=== PATIENT | male | born 1950 | race Caucasian/White ===

== ENCOUNTER 2016-09-21 14:16 | Outpatient (CLI) | payer MEDICAID ==
[2016-09-21 18:56] LABS: HEMOGLOBIN A1C 0.55 g/dL
[2016-09-21 19:03] LABS: CHOL/HDL RATIO 3.2 (<5.0); CHOLESTEROL 211 mg/dL; HDL CHOLESTEROL 66 mg/dL; LDL/HDL RATIO 1.8 (<3.6); TRIGLYCERIDES 137 mg/dL; VLDL CHOLESTEROL 27 mg/dL
== END 2016-09-21 14:17 | disposition home or self-care (01) ==
LOC: LAB.F 14:16
PROVIDERS: ATTEND Internal Medicine
DX: E78.00 Pure hypercholesterolemia, unspecified (principal); R73.9 Hyperglycemia, unspecified
CPT/HCPCS: 36415; 80061; 83036

== ENCOUNTER 2018-05-20 08:55 | Outpatient (CLI) | payer MEDICARE ==
[2018-05-20 18:08] LABS: BASOPHILS % (AUTO) 0.6 %; EOSINOPHILS # (AUTO) 0.2 10^3/uL (0.0-0.7); EOSINOPHILS % (AUTO) 3.1 %; HGB - HEMOGLOBIN 15.5 g/dL (14.0-18.0); LYMPHOCYTES # (AUTO) 1.2 10^3/uL (1.5-3.5); MEAN CORPUSCULAR HEMOGLOBIN 33.7 pg (27.0-31.0); MEAN CORPUSCULAR HGB CONC 34.1 g/dL (32.0-36.0); MEAN CORPUSCULAR VOLUME 98.8 fL (80.0-94.0); MEAN PLATELET VOLUME 9.8 fL (7.4-11.4); MONOCYTES # (AUTO) 0.5 10^3/uL (0.0-1.0); MONOCYTES % (AUTO) 9.5 %; NEUTROPHILS # (AUTO) 3.3 10^3/uL (1.5-6.6); NEUTROPHILS % (AUTO) 63.8 %; PLT - PLATELET COUNT 174 10^3/uL (130-450); RED CELL DISTRIBUTION WIDTH 12.8 % (12.0-15.0); WHITE BLOOD COUNT 5.2 x10^3/uL (4.8-10.8)
[2018-05-20 18:21] LABS: ALBUMIN 4.4 g/dL (3.2-5.5); ALBUMIN/GLOBULIN RATIO 1.7 (1.0-2.2); ALKALINE PHOSPHATASE 61 IU/L (42-121); ALT ALANINE AMINOTRANSFERASE 25 IU/L (10-60); AST ASPARTATE AMINOTRANSFERASE 28 IU/L (10-42); BILIRUBIN,TOTAL 0.9 mg/dL (0.2-1.0); BUN - BLOOD UREA NITROGEN 18 mg/dL (6-20); CALCIUM 8.9 mg/dL (8.5-10.3); CARBON DIOXIDE - CO2 26 mmol/L (21-32); CHLORIDE 102 mmol/L (101-111); CHOL/HDL RATIO 3.3 (<5.0); CHOLESTEROL 191 mg/dL; CREATININE 0.8 mg/dL (0.6-1.2); GFR - MDRD 97 (>89); GLUCOSE 103 mg/dL (70-100); HDL CHOLESTEROL 58 mg/dL; LDL CHOLESTEROL,CALCULATED 119 mg/dL; LDL/HDL RATIO 2.1 (<3.6); SODIUM 136 mmol/L (135-145); VLDL CHOLESTEROL 14 mg/dL
[2018-05-20 18:55] LABS: HB2 TOTAL 16.7 g/dL; HEMOGLOBIN A1C 0.57 g/dL; HEMOGLOBIN A1C % 5.3 % (4.6-6.2)
[2018-05-21 13:47] LABS: HEPATITIS C ANTIBODY NON-REACTIVE (NON-REACTIVE)
== END 2018-05-20 08:56 | disposition home or self-care (01) ==
LOC: LAB.F 08:55
PROVIDERS: ATTEND Registered Nurse
DX: Z00.00 Encounter for general adult medical examination without abnormal findings (principal)
CPT/HCPCS: 36415; 80061; 83036; 86803; G0103; 80053; 83721; 84153; 84443; 85025

== ENCOUNTER 2020-08-06 09:54 | Day surgery (SDC) | payer MEDICARE ==
[2020-08-06] MEDS ORDERED: LACTATED RINGERS 1,000 ML IV ONE ×2 (10:08→11:46)
[2020-08-06] MEDS ORDERED: MIDAZOLAM 2 MG/2 ML VIAL ONE (10:44)
[2020-08-06] MEDS ORDERED: fentaNYL 250 MCG/5 ML VIAL ONE (10:44)
[2020-08-06 12:01] VITALS: BP 114/80
== END 2020-08-06 09:55 | disposition home or self-care (01) ==
LOC: SDS 09:54
PROVIDERS: ATTEND Surgery
PROC: 0DBP8ZX Excision of Rectum, Via Natural or Artificial Opening Endoscopic, Diagnostic (ICD-10-PCS; 2020-08-06)
PROC: 0DBK8ZX Excision of Ascending Colon, Via Natural or Artificial Opening Endoscopic, Diagnostic (ICD-10-PCS; principal; 2020-08-06 11:00)
DX: Z12.11 Encounter for screening for malignant neoplasm of colon (principal); K62.1 Rectal polyp; D12.2 Benign neoplasm of ascending colon; K57.30 Diverticulosis of large intestine without perforation or abscess without bleeding
CPT/HCPCS: 45380; J3010; J7120

== ENCOUNTER 2021-02-23 08:00 | Outpatient (CLI) | payer MEDICARE ==
--- NOTE | 2021-02-23 13:41 | XRAY Report ---
PROCEDURE: Lumbar Spine 2 View INDICATIONS: LUMBAR RADICULOPATHY TECHNIQUE: 3 views of the lumbar spine were acquired. COMPARISON: None. FINDINGS: L-SPINE: No acute displaced fracture. Minimal grade 1 anterolisthesis at L4-5. Endplate osteophytosis . 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 The vertebral body heights are maintained. The disc spac e heights are preserved. The sacroiliac joints appear patent. SOFT TISSUES: No focal abnormality. IMPRESSION: 1.No acute osseous abnormality of the lumbar spine. Reviewed by: Harsh Belrtan MD on 02/23/2021 1:40 PM [facility] Approved by: Harsh Beltran MD on 02/23/2021 1:40 PM [facility] Station ID: [id number]
== END 2021-02-23 23:59 | disposition home or self-care (01) ==
LOC: DI.S 08:00
PROVIDERS: ATTEND Physician Assistant
DX: M54.16 Radiculopathy, lumbar region (principal)

== ENCOUNTER 2021-03-28 09:57 | Outpatient (CLI) | payer MEDICARE ==
[2021-03-28 14:30] LABS: BASOPHILS # (AUTO) 0.1 10^3/uL (0.0-0.1); EOSINOPHILS # (AUTO) 0.2 10^3/uL (0.0-0.7); EOSINOPHILS % (AUTO) 3.6 %; HCT - HEMATOCRIT 45.5 % (42.0-52.0); HGB - HEMOGLOBIN 15.7 g/dL (14.0-18.0); LYMPHOCYTES # (AUTO) 1.5 10^3/uL (1.5-3.5); MEAN CORPUSCULAR HEMOGLOBIN 34.7 pg (27.0-31.0); MEAN CORPUSCULAR HGB CONC 34.5 g/dL (32.0-36.0); MEAN CORPUSCULAR VOLUME 100.4 fL (80.0-94.0); MEAN PLATELET VOLUME 10.8 fL (7.4-11.4); MONOCYTES # (AUTO) 0.6 10^3/uL (0.0-1.0); MONOCYTES % (AUTO) 10.4 %; NEUTROPHILS # (AUTO) 3.7 10^3/uL (1.5-6.6); NEUTROPHILS % (AUTO) 60.7 %; PLT - PLATELET COUNT 195 10^3/uL (130-450); RED BLOOD COUNT 4.53 10^6/uL (4.70-6.10)
[2021-03-28 15:20] LABS: ALBUMIN 4.3 g/dL (3.2-5.5); ALBUMIN/GLOBULIN RATIO 1.6 (1.0-2.2); ALKALINE PHOSPHATASE 62 IU/L (42-121); ALT ALANINE AMINOTRANSFERASE 27 IU/L (10-60); AST ASPARTATE AMINOTRANSFERASE 30 IU/L (10-42); BILIRUBIN,TOTAL 1.2 mg/dL (0.2-1.0); BUN - BLOOD UREA NITROGEN 13 mg/dL (6-20); CARBON DIOXIDE - CO2 28 mmol/L (21-32); CHLORIDE 100 mmol/L (101-111); CHOL/HDL RATIO 3.3 (<5.0); CHOLESTEROL 203 mg/dL; CREATININE 0.9 mg/dL (0.6-1.2); GFR - MDRD 84 (>89); GLUCOSE 100 mg/dL (70-100); HDL CHOLESTEROL 61 mg/dL; LDL CHOLESTEROL,CALCULATED 124 mg/dL; POTASSIUM 4.4 mmol/L (3.5-5.0); SODIUM 137 mmol/L (135-145); TRIGLYCERIDES 91 mg/dL; VLDL CHOLESTEROL 18 mg/dL
[2021-03-28 15:27] LABS: THYROID STIMULATING HORMONE 3.46 uIU/mL (0.34-5.60)
== END 2021-03-28 09:58 | disposition home or self-care (01) ==
LOC: LAB.S 09:57
PROVIDERS: ATTEND Registered Nurse
DX: C61 Malignant neoplasm of prostate (principal); Z79.899 Other long term (current) drug therapy
CPT/HCPCS: 36415; 80053; 80061; 83721; 84153; 84443; 85025

== ENCOUNTER 2023-05-31 13:36 | Outpatient (CLI) | payer MEDICARE ==
[2023-05-31 13:51] LABS: BASOPHILS % (AUTO) 0.5 %; EOSINOPHILS # (AUTO) 0.1 10^3/uL (0.0-0.7); EOSINOPHILS % (AUTO) 0.9 %; HCT - HEMATOCRIT 47.8 % (42.0-52.0); HGB - HEMOGLOBIN 16.2 g/dL (14.0-18.0); LYMPHOCYTES # (AUTO) 1.2 10^3/uL (1.5-3.5); LYMPHOCYTES % (AUTO) 18.3 %; MEAN CORPUSCULAR HGB CONC 33.9 g/dL (32.0-36.0); MEAN CORPUSCULAR VOLUME 100.2 fL (80.0-94.0); MEAN PLATELET VOLUME 10.4 fL (7.4-11.4); MONOCYTES # (AUTO) 0.5 10^3/uL (0.0-1.0); MONOCYTES % (AUTO) 8.5 %; NEUTROPHILS # (AUTO) 4.5 10^3/uL (1.5-6.6); NEUTROPHILS % (AUTO) 71.5 %; PLT - PLATELET COUNT 214 10^3/uL (130-450); RED BLOOD COUNT 4.77 10^6/uL (4.70-6.10); RED CELL DISTRIBUTION WIDTH 11.9 % (12.0-15.0); WHITE BLOOD COUNT 6.4 x10^3/uL (4.8-10.8)
[2023-05-31 14:25] LABS: ALBUMIN 4.6 g/dL (3.2-5.5); ALBUMIN/GLOBULIN RATIO 1.9 (1.0-2.2); ALKALINE PHOSPHATASE 76 IU/L (42-121); ALT ALANINE AMINOTRANSFERASE 26 IU/L (10-60); AST ASPARTATE AMINOTRANSFERASE 28 IU/L (10-42); BUN - BLOOD UREA NITROGEN 15 mg/dL (6-20); CALCIUM 10.1 mg/dL (8.5-10.3); CARBON DIOXIDE - CO2 29 mmol/L (21-32); CHLORIDE 102 mmol/L (101-111); CHOLESTEROL 189 mg/dL; CREATININE 0.9 mg/dL (0.6-1.3); GFR - MDRD 83 (>89); GLUCOSE 102 mg/dL (74-104); HDL CHOLESTEROL 63 mg/dL; LDL CHOLESTEROL,CALCULATED 103 mg/dL; LDL/HDL RATIO 1.6 (<3.6); POTASSIUM 4.3 mmol/L (3.5-4.5); SODIUM 137 mmol/L (135-145); TRIGLYCERIDES 114 mg/dL (48-352); VLDL CHOLESTEROL 23 mg/dL
== END 2023-05-31 13:37 | disposition home or self-care (01) ==
LOC: LAB 13:36
PROVIDERS: ATTEND Internal Medicine Cardiovascular Disease
DX: R06.00 Dyspnea, unspecified (principal)
CPT/HCPCS: 36415; 80053; 80061; 83721; 85025

== ENCOUNTER 2023-06-15 11:00 | Outpatient (CLI) | payer MEDICARE ==
--- NOTE | 2023-06-15 14:50 | XRAY Report ---
PROCEDURE: Chest 2V INDICATIONS: DYSPNEA ON EXTERTION TECHNIQUE: 2 views of the chest were acquired. COMPARISON: None. FINDINGS: Surgical changes and devices: None. Lungs and pleura: No pleural effusions or pneumothorax. Lungs are clear. Mediastinum: Mediastinal contours appear normal. Heart size is normal. Bones and chest wall: No suspicious bony lesions. Overlying soft tissues appear unremarkable. Degen erative changes of the spine. IMPRESSION: No acute cardiopulmonary process. Reviewed by: Nicci Potter MD on 06/15/2023 2:49 PM PDT Approved by: Nicci Potter MD on 06/15/2023 2:49 PM PDT Station ID: [id number]
== END 2023-06-15 11:01 | disposition home or self-care (01) ==
LOC: DI.S 11:00
PROVIDERS: ATTEND Registered Nurse
DX: R06.09 Other forms of dyspnea (principal); C61 Malignant neoplasm of prostate
CPT/HCPCS: 36415; 84153

== ENCOUNTER 2023-07-17 12:45 | Outpatient (CLI) | payer MEDICARE ==
--- NOTE | 2023-07-17 12:56 | CARDIAC PROCEDURE NOTE ---
Stress Test Report Service Date: 07/17/23 Service Time: 01:00 Ordering Provider: Ruby Ross FNP-C Indication for Test: Assess recent significant decline in exercise tolerance, with episodic feeling of "wooziness". Significant Medical History: Sahil is referred for an exercise tolerance test today, to assess a recent decline in exertional tolerance, with episodes of marked lightheadedness. This was first noted earlier this spring during an extended trip to [place], when he had to cut short hikes that were previously about 8 miles, sometimes within a few hundred yards, due to marked lightheadedness and diaphoresis, without a clear increase in dyspnea or chest discomfort. On a subsequent trip to [place], attempts to hike were again met with lightheadedness and, at times, pre-syncope. Walks since at [facility] have also been associated with symptom episodes, but less severe. He comments that he takes pains to remain well-hydrated, uses electrolyte supplements prior to hikes and the temperatures during all of these episodes have always been no greater than 70 degrees. He denies any rest symptoms. Cardiac Risk Factors: Negative for history of hypertension, hyperlipidemia, diabetes, known family history of ASCVD events and recent tobacco smoking (quit >30 yrs ago, so not an active risk). Type of Stress Test: Exercise Treadmill Test (ETT) Procedure: -Exercise Treadmill Test- After signing informed consent, the patient performed treadmill exercise using a Valeriano protocol. The patient exercised for 9 minutes 37 seconds and achieved a peak heart rate of 140 (93 percent predicted maximum heart rate for age), and an estimated workload of 11.2 METS. The test was terminated due to the development of an apparent wide complex tachycardia rhythm after the target heart rate had been reached. Resting heart rate: 61 Peak heart rate: 140 Normal response to exercise. Resting BP: 141/85 Peak BP: 192/85 Borderline hypertensive at rest with phys iologic increase in systolic BP during exercise. Room air oxygen saturation ranged between 94-97% during exercise. Rhythm during exercise: Sinus rhythm throughout the first 9:29 of exercise, with sudden appearance of apparent wide complex QRS beats. After initial consideration of pathologic tachycardia or aberrant ventricular conduction, it was concluded they were likely artifactual. Symptoms: He described some fatigue and shortness of breath, without any chest discomfort, and without any change as the appearance of his QRS complexes changed. EKG at rest showed normal sinus rhythm, normal in all aspects. EKG just prior to peak stress (and likely artifactual segments) showed no ischemia by EKG criteria. In Recovery HR and BP gradually decreased, though HR remained elevated (90 bpm) with full normalization of BP at 5:00. No imaging was ordered with this stress test. Raimundo Starkey MD, was present throughout this treadmill stress study and supervised it in its entirety. Summary: 1) Exercise tolerance was well above average for age and sex as evidenced by ALEJO of -38%. 2) Normal resting EKG. 3) Adequate level of exercise was achieved on this treadmill stress test. 4) Normal BP response to exercise. 5) No ischemic changes by EKG criteria were seen at peak stress but patient developed what appeared to be wide QRS beats, determined to be likely artifact, that resolved quickly after the test was stopped. 6) No imaging was ordered with this test. Conclusions and Recommendations: 1) Overall this is likely a fully reassuring exercise treadmill test, with exercise time well above average, normal hemodynamic response and no symptom or EKG evidence of inducible ischemia. 2) The EKG tracings obtained at peak stress that were initially concerning for showing wide-complex beats were reviewed with the patient's referring legal stenographer, Dr. Parr; we agree that their resolution after the patient stopped moving is most convincing for artifact and that additional rhythm assessment is not indicated.
== END 2023-07-17 12:46 | disposition home or self-care (01) ==
LOC: DI 12:45
PROVIDERS: ATTEND Internal Medicine Cardiovascular Disease
DX: R06.09 Other forms of dyspnea (principal); R42 Dizziness and giddiness; Z82.49 Family history of ischemic heart disease and other diseases of the circulatory system; Z87.891 Personal history of nicotine dependence
CPT/HCPCS: 93017